=== PATIENT | male | born 1995 | race Caucasian/White ===

== ENCOUNTER 2023-06-29 13:04 | Emergency (ER) | payer MEDICAID ==
[~2023-06-29] VITALS: Ht 175.3 cm; Wt 125.2 kg
[2023-06-29 13:19] VITALS: O2SAT 97
[2023-06-29] MEDS: LIDOCAINE HCL/PF 1% 10 MG/ML 5ML VIAL INFIL ONE (17:00)
[2023-06-29] MEDS: TETANUS, DIPHTHERIA, PERTUSSIS VAC/PF 0.5ML (>10YR OLD) IM ONE (17:00)
[2023-06-29] MEDS ORDERED: CEPH500T MT ×2 (18:00)
[2023-06-29] MEDS ORDERED: IBUP-2030 MT (18:00)
[2023-06-29] MEDS: BACITRACIN ZINC OINT UDPKT TOP ONE (18:00)
[2023-06-29] MEDS ORDERED: BO1 TP (18:00)
[2023-06-29 18:55] VITALS: BP 139/89; PULSE 74; RESP 16; TEMP 97.8
== END 2023-06-29 19:27 | disposition home or self-care (01) ==
LOC: ER 13:51
DX: S01.81XA Laceration without foreign body of other part of head, initial encounter (principal); S01.311A Laceration without foreign body of right ear, initial encounter; M54.2 Cervicalgia; Y08.89XA Assault by other specified means, initial encounter; Y93.89 Activity, other specified; Y92.89 Other specified places as the place of occurrence of the external cause; Y99.8 Other external cause status
CPT/HCPCS: 73030; 73562; 70450; 70490; 90715; 12013; 90471; 99285; J3490; Z7610 ×3

== ENCOUNTER 2023-07-01 19:50 | Emergency (ER) | payer MEDICAID ==
[~2023-07-01] VITALS: Ht 175.3 cm; Wt 84.0 kg
[~2023-07-01 19:50] MED LIST: BO1 TP; CEPH500T MT; IBUP-2030 MT
[2023-07-01 20:00] VITALS: BP 128/90; PULSE 82; RESP 13; TEMP 98.7; O2SAT 97
== END 2023-07-01 21:20 | disposition home or self-care (01) ==
LOC: ER 21:18
DX: S01.311D Laceration without foreign body of right ear, subsequent encounter (principal); X58.XXXD Exposure to other specified factors, subsequent encounter
CPT/HCPCS: 99281

== ENCOUNTER 2023-07-07 15:42 | Emergency (ER) | payer MEDICAID ==
[~2023-07-07] VITALS: Ht 172.7 cm; Wt 79.0 kg
[2023-07-07 15:52] VITALS: BP 111/82; PULSE 73; RESP 16; TEMP 98.2; O2SAT 97
[2023-07-07] MEDS ORDERED: SULF1TAB48 MT (18:15)
== END 2023-07-07 18:49 | disposition left against medical advice (07) ==
LOC: ER 15:42
DX: S01.312D Laceration without foreign body of left ear, subsequent encounter (principal); X58.XXXD Exposure to other specified factors, subsequent encounter
CPT/HCPCS: 99281

== ENCOUNTER 2023-07-12 13:15 | Emergency (ER) | payer MEDICAID ==
[~2023-07-12] VITALS: Ht 177.8 cm; Wt 80.0 kg
[~2023-07-12 13:15] MED LIST changes: +SULF1TAB48 MT
[2023-07-12 13:22] VITALS: BP 112/79; PULSE 84; RESP 18; TEMP 98; O2SAT 98
[2023-07-12] MEDS ORDERED: CIPR-263 MT (14:47)
[2023-07-12] MEDS ORDERED: CLIN-194 MT (14:47)
== END 2023-07-12 15:27 | disposition home or self-care (01) ==
LOC: ER 13:15
DX: T81.31XA Disruption of external operation (surgical) wound, not elsewhere classified, initial encounter (principal); H92.01 Otalgia, right ear; X58.XXXA Exposure to other specified factors, initial encounter
CPT/HCPCS: 99281